=== PATIENT | female | born 1960 | race Caucasian/White ===

== ENCOUNTER → 2016-09-25 | Outpatient (CLI) | payer BC ==
--- NOTE | ~2016-09-25 | CR186 ---
[facility] A Service of [facility] RADIOLOGY TEXT RESULTS PATIENT: KENNEY SCOTT LOCATION: [facility] : 58 UNIT #: [id number] AGE: [address]: Doyle Hawk SEX: F ORDER DR: [id number] [facility] [address] [place], [place] [address] [id number] O MR#: [id number] Acc #: [id number] NAME: KENNEY SCOTT : 1960 SEX: F STUDY DATE/TIME: 09/25/2016 UNIT: [facility] ROOM: STUDY DESCRIPTION: CR Lumbar Spine W Bend Min 6 V Attending Physician: Bob Hawk P.A.-C. Referring Physician: Bob Hawk P.A.-C. Ordering Physician: Bob Hawk P.A.-C. Primary Care Physician: Antoinette Covarrubias M.D. MEDICAL IMAGING REPORT This report is preliminary unless electronic signature is present EXAM Lumbar spine series with flexion and extension 09/25/2016 0931 hours. HISTORY 56-year-old with 5-year history of chronic pain, stiffness and left hip pain. History of back fusion in 2011. COMPARISON Sagittal and coronal reconstructions of CT abdomen and pelvis 10/07/2015. FINDINGS AP, lateral, and coned lateral views of the lumbosacral junction and lateral flexion and extension views are performed. The patient is postop lumbar fusion with bilateral pedicle screws and vertical stabilization rods at L4, L5 and S1. Hardware is intact. Alignment is anatomic. The oblique views demonstrate no pars defects. Lateral flexion and extension views demonstrate normal alignment. No instability is demonstrated. IMPRESSION Postop fusion L4, L5 and S1 with hardware intact. The alignment is normal. There is no abnormal translation on the flexion or extension views. Oblique views demonstrate no pars defects. Dictated by... Samreen Dodge M.D. THIS IS AN ELECTRONICALLY VERIFIED REPORT Samreen Dodge M.D. at 09/25/2016 2:29 PM [facility] A Service of [facility] RADIOLOGY TEXT RESULTS PATIENT: KENNEY SCOTT LOCATION: [facility] : 58 UNIT #: [id number] AGE: [address]: Doyle Hawk SEX: F ORDER DR: Charu TD: 09/25/2016 11:56 JOB #: [id number] MEDICAL IMAGING REPORT Page 1 of 1 COPY
--- NOTE | ~2016-09-25 | CR59 ---
[facility] A Service of [facility] RADIOLOGY TEXT RESULTS PATIENT: KENNEY SCOTT LOCATION: [facility] : 58 UNIT #: [id number] AGE: [address]: Doyle Hawk SEX: F ORDER DR: [id number] [facility] [address] [place], [place] [address] [id number] O MR#: [id number] Acc #: [id number] NAME: KENNEY SCOTT : 1960 SEX: F STUDY DATE/TIME: 09/25/2016 0933 UNIT: [facility] ROOM: STUDY DESCRIPTION: CR Cervical Spine 5 View W Ines Attending Physician: Bob Hawk P.A.-C. Referring Physician: Bob Hawk P.A.-C. Ordering Physician: Bob Hawk P.A.-C. Primary Care Physician: Antoinette Covarrubias M.D. MEDICAL IMAGING REPORT This report is preliminary unless electronic signature is present EXAM Cervical spine series with oblique and flexion and extension views, 09/25/2016, 0933 hours. HISTORY chronic neck pain with fusion surgery 2013 COMPARISON 07/09/2012 FINDINGS AP, lateral, and open mouth views demonstrate anterior plate and screw fusion from C4-C7 with screws at each level. There are disc spacers at C4-5, 5-6, 6-7. The alignment is anatomic. No fracture or hardware failure is seen. Oblique views demonstrate mild right-sided bony foraminal compromise at C4-5. No definite left-sided bony foraminal compromise is seen but the oblique view is suboptimal. Lateral flexion and extension views demonstrate very limited range of motion. There is no abnormal translation or instability. IMPRESSION Anterior plate screw fusion from C4-C7 with anatomic alignment. No fracture is seen. No abnormal translation. There is question of mild bony foraminal compromise on the left at C4-5. Dictated by... Samreen Dodge M.D. [facility] A Service of [facility] RADIOLOGY TEXT RESULTS PATIENT: KENNEY SCOTT LOCATION: [facility] #: [id number] : 58 UNIT #: [id number] AGE: [address]: Doyle Hawk SEX: F ORDER DR: THIS IS AN ELECTRONICALLY VERIFIED REPORT Samreen Dodge M.D. at 09/25/2016 2:31 PM SHAHRAM/leonel TD: 09/25/2016 12:12 JOB #: [id number] MEDICAL IMAGING REPORT Page 1 of 1 COPY
== END | disposition home or self-care (01) ==
LOC: CRAD 09:18
DX: M54.2 Cervicalgia (principal); M54.5 Low back pain; G89.29 Other chronic pain; Z98.1 Arthrodesis status
CPT/HCPCS: 72052; 72114